=== PATIENT | male | born 1950 | race Caucasian/White ===

== ENCOUNTER 2019-04-12 07:58 | Day surgery (SDC) | payer BC, OTHER ==
[~2019-04-12 07:58] MED LIST: Acetaminophen TAB* 325 MG PO PRN; Buffered Lidocaine 1% SYRIN* 1 ML/SYRINGE INTRADERM ONE
[2019-04-12] MEDS ORDERED: Midazolam* 1 MG/ML 2 ML VIAL (2 MG) ONE (08:31)
[2019-04-12] MEDS ORDERED: fentaNYL* 50 MCG/ML 2 ML VIAL (100 MCG VIAL) ONE (08:31)
[2019-04-12 11:35] VITALS: BP 106/64
[2019-04-12] MEDS ORDERED: Tropicamide 1% OPTH.SOL* BTL ONE (11:45)
[2019-04-12] MEDS ORDERED: Cyclopentolate 1% OPTH.SOL* 2 ML BTL ONE (11:45)
[2019-04-12] MEDS ORDERED: Ketorolac 0.5% OPHTH (NF) 0.5 % 5 ML BTL ONE (11:45)
[2019-04-12] MEDS ORDERED: Phenylephrine OPHTH SOL 2.5%* 2 ML ONE (11:45)
[2019-04-12] MEDS ORDERED: Tetracaine 0.5% OPTH.SOL 4 ML* 1 DROP BTL ONE (11:45)
[2019-04-12] MEDS ORDERED: Lidocaine 1%* 5 ML VIAL ONE (11:45)
[2019-04-12] MEDS ORDERED: Neomycin/Polymy/Dex OPHTH.OIN* 3.5 GM ONE (11:45)
--- NOTE | 2019-04-12 14:36 | OP ---
DATE OF OPERATION: 04/12/19 [facility] DATE OF : 52 SURGEON: Raheem Phelps MD [employer] OPERATOR: None. ANESTHESIA: Topical with intravenous sedation. PRE-OP DIAGNOSIS: Cataract, high myopia, right eye. POST-OP DIAGNOSIS: Cataract, high myopia, right eye. OPERATIVE PROCEDURES: Phacoemulsification and cataract extraction with posterior chamber intraocular lens implant, right eye. COMPLICATIONS: None. BLOOD LOSS: None. DESCRIPTION OF PROCEDURE: The patient was brought to the operating room and received a small of intravenous sedation. A drop of tetracaine was placed into his right eye. The patient was prepped and draped in the usual sterile fashion for ophthalmic surgery and attention was directed to the right eye where a speculum was placed. A paracentesis was created at the 11 o'clock position, and 0.1 cc of 1% preservative-free lidocaine was injected into the anterior chamber followed by DisCoVisc. The eye was digitally stabilized while a 2.75 mm keratome was used to create a triplanar clear corneal incision at the 9 o'clock position. A continuous curvilinear capsulorrhexis was created with cystotome and Utrata forceps. BSS on a cannula was used to hydrodissect the lens from the capsule. Phacoemulsification was performed in a [id number]-uhi-[id number] technique to create four fragments which were removed. Residual cortical material was removed with irrigation and aspiration. The capsular bag was polished. Provisc was used to inflate the capsular bag. The intraoperative tonometer was used to check the eye pressure. The surface of the eye was irrigated with balanced saline solution. The ORA device was employed. The ORA guided the lens choice to a AU00T0 10.5 diopter lens. The lens was inserted into the capsular bag. Viscoelastic was removed with irrigation and aspiration. BSS on a cannula was used to hydrate the corneal stroma and seal the wound. At the end of the case, the pupil was round and the lens was centered. The eye pressure appeared normal and the wound was water tight. The speculum was removed and topical Maxitrol ointment was placed on the surface of the eye. The eye was closed, patched and shielded and the patient was sent to recovery room in stable condition with postoperative instructions and a followup appointment given. [id number]/[facility] #: [id number] TIANA
== END 2019-04-12 10:35 | disposition home or self-care (01) ==
LOC: OREAST 07:58
PROVIDERS: ATTEND Ophthalmology
DX: H25.11 Age-related nuclear cataract, right eye (principal); H44.20 Degenerative myopia, unspecified eye; R73.03 Prediabetes
CPT/HCPCS: A9270-GY; J2250; J3010; V2632

== ENCOUNTER 2019-04-19 07:39 | Day surgery (SDC) | payer BC, OTHER ==
[2019-04-19] MEDS ORDERED: Lidocaine 2% PF * 5 ML VIAL ONE (09:09)
[2019-04-19] MEDS ORDERED: Propofol* 10 MG/ML 20 ML BTL ONE (09:09)
[2019-04-19] MEDS ORDERED: Midazolam* 1 MG/ML 2 ML VIAL (2 MG) ONE (09:09)
[2019-04-19 10:00] VITALS: BP 105/67
--- NOTE | 2019-04-19 11:16 | OP ---
OPERATIVE REPORT: DATE OF OPERATION: 04/19/19 DATE OF : 52 SURGEON: Dr. Raheem Phelps [employer]ER: None. ANESTHESIA: Topical with intravenous sedation. PRE-OP DIAGNOSIS: Cataract and high myopia, left eye. POST-OP DIAGNOSIS: Cataract and high myopia, left eye. OPERATIVE PROCEDURE: Phacoemulsification and cataract extraction with posterior chamber intraocular lens implant, left eye. COMPLICATIONS: None. BLOOD LOSS: None. OPERATIVE FINDINGS: The patient was brought to the operating room and was given intravenous sedation . A drop of Tetracaine was placed into his left eye. The patient was prepped and draped in the usua l sterile fashion for ophthalmic surgery and attention was directed to the left eye where a speculum was placed. A paracentesis was created at the 5 o'clock position and 0.1 cc of 1% preservative- free lidocaine was injected into the anterior chamber followed by DisCoVisc. The eye was digitally stabi lized while a 2.75 mm keratome was used to create a triplanar clear corneal incision at the 3 o'clock position. A continuous curvilinear capsulorrhexis was created with a cystotome and Utrata forceps. BSS on a cannula was used to hydrodissect the lens from the capsule. Phacoemulsification was perfor med in a [id number]-drb-[id number] technique to create four fragments which were removed. Residual cortical material was removed with irrigation and aspiration. Provisc was used to inflate the eye. The surfa ce of the eye was lubricated. The ORA device was employed to help guide the lens choice. An AU00T0 10.0 diopter lens was chosen. This lens was inserted into the capsular bag. Viscoelastic was remove d with irrigation and aspiration. BSS on a cannula was used to hydrate the corneal stroma and seal t he wound. At the end of the case, the pupil was round and the lens was centered. The eye pressure a ppeared normal and the wound was water tight. The speculum was removed and topical Maxitrol ointment was placed on the surface of the eye. The eye was closed, patched and shielded and the patient was sent to the recovery room in stable condition with postoperative instructions and followup appointmen t given. [id number]/[facility] #: [id number]
[2019-04-19] MEDS ORDERED: Tetracaine 0.5% OPTH.SOL 4 ML* 1 DROP BTL ONE (11:33)
[2019-04-19] MEDS ORDERED: Phenylephrine OPHTH SOL 2.5%* 2 ML ONE (11:33)
[2019-04-19] MEDS ORDERED: Cyclopentolate 1% OPTH.SOL* 2 ML BTL ONE (11:33)
[2019-04-19] MEDS ORDERED: Lidocaine 1%** 5 ML VIAL ONE (11:33)
[2019-04-19] MEDS ORDERED: Neomycin/Polymy/Dex OPHTH.OIN* 3.5 GM ONE (11:33)
[2019-04-19] MEDS ORDERED: Tropicamide 1% OPTH.SOL* BTL ONE (11:33)
[2019-04-19] MEDS ORDERED: Ketorolac 0.5% OPHTH (NF) 0.5 % 5 ML BTL ONE (11:33)
== END 2019-04-19 10:00 | disposition home or self-care (01) ==
LOC: OREAST 07:39
PROVIDERS: ATTEND Ophthalmology
DX: Z01.818 Encounter for other preprocedural examination (principal); H25.13 Age-related nuclear cataract, bilateral; H44.22 Degenerative myopia, left eye; R73.03 Prediabetes; M72.2 Plantar fascial fibromatosis
CPT/HCPCS: A9270-GY; J2250; J2704; V2632